=== PATIENT | male | born 1995 | race African-American/Black ===

== ENCOUNTER 2017-09-25 10:16 | Emergency (ER) | payer MEDICAID ==
[~2017-09-25] VITALS: Ht 190.5 cm; Wt 137.0 kg
[2017-09-25 10:42] VITALS: BP 135/78
== END 2017-09-25 15:52 | disposition home or self-care (01) ==
LOC: ER 10:43
DX: J06.9 Acute upper respiratory infection, unspecified (principal)
CPT/HCPCS: 87070; 87430; 99284